=== PATIENT | female | born 1935 | race Caucasian/White ===

== ENCOUNTER 2016-11-12 15:26 | Emergency (ER) | payer MEDICARE, OTHER ==
[2016-11-12 15:42] VITALS: TEMP 98.6
[2016-11-12] MEDS ORDERED: MAG HYDROX/AL HYDROX/SIMETH 30 ML, HYOSCYAMINE ELIXIR 10 ML, CIMETIDINE HCL 300 MG, LID... PO STA ×4 (16:25)
[2016-11-12] MEDS ORDERED: HYDROcodone/APAP 5-325MG 1 EACH TAB PO STA (16:25)
--- NOTE | 2016-11-12 16:45 | ED ---
General Adult HPI - General Chief complaint: Nausea/Vomiting/Diarrhea Stated complaint: Feeding Tube Possibly Dislodged Time Seen by Provider: 11/12/16 15:47 Source: patient, family, RN notes reviewed Mode of arrival: wheelchair Limitations: no limitations - History of Present Illness Initial comments: This patient is an 81-year-old woman who presents with concerns about the gastric tube that she has. The patient has history of distal esophagus/GE junction adenocarcinoma, which had a treatment with what sounds like local recurrence. The patient was not felt to be a surgical candidate. She did have some esophageal stricture, and therefore had the gastric tube placed about 6 weeks ago and then a number weeks ago she had esophageal stenting, as she continues to eat and has had food retained in the esophagus. The patient's complaint today is that she felt that the G-tube is projecting further out of her abdomen than it has in the past, and she has also noted which she is calling some black drainage around the outside of it. The patient is denying pain at the insertion site or in the abdomen. She has continued to use the tube for tube feeding, though she does occasionally eat by mouth as well. Patient denies chest pain. Denies cough or dyspnea. No abdominal pain. No dark or tarry stools. -: days(s) - Related Data Home Medications Medication Instructions Recorded Confirmed Pravastatin Sodium [Pravachol] 20 mg PO HS 09/11/15 11/12/16 Feeding Solution 1 dose PEG/G-TUBE DIRECTED 09/21/16 11/12/16 Omeprazole 20 mg PO DAILY 11/12/16 11/12/16 Previous Rx's Medication Instructions Recorded Hydrocodone/Acetaminophen [[place] 1 each PO Q6HR PRN #20 tab 11/12/16 5-325] Allergies Allergy/AdvReac Type Severity Reaction Status Date / Time penicillin V potassium Allergy Rash/Hives Verified 11/12/16 15:51 [From Renetta Savage] Penicillins Allergy Rash/Hives Verified 11/12/16 15:51 Review of Systems ROS Statement: Those systems with pertinent positive or pertinent negative responses have been documented in the HPI. ROS Other: All systems not noted in ROS Statement are negative. Constitutional: Denies: fever Respiratory: Denies: cough, dyspnea Cardiovascular: Denies: chest pain, palpitations, edema Gastrointestinal: Reports: as per HPI. Denies: abdominal pain, vomiting, diarrhea, constipation, melena, hematochezia Musculoskeletal: Denies: back pain Skin: Denies: rash Neurological: Denies: headache, weakness, numbness Past Medical History Past Medical History: Atrial Fibrillation, Cancer, COPD, Hyperlipidemia, Hypertension Additional Past Medical History / Comment(s): Adenocarcinoma of the distal esophagus/GE junction, Stage III esophageal cancer with chemo/radiation completed about 7 weeks ago, L foot drop, chronic atrial fibrillation, previous GI bleeding detailed discussed above, hypertension, breast cancer left-sided status post mastectomy, chronic back pain and degenerative arthritis, COPD, hyperlipidemia, recent admission 06/06/16 for dizziness History of Any Multi-Drug Resistant Organisms: None Reported Past Surgical History: Adenoidectomy, Appendectomy, Breast Surgery, Cholecystectomy, Tonsillectomy Additional Past Surgical History / Comment(s): 05/10/16 EGD, aortic aneurysm repair, left breast mastectomy, L breast bx, cataract removals bilaterally, colonoscopy with benign polypectomy.aaa repair Past Anesthesia/Blood Transfusion Reactions: No Reported Reaction Additional Past Anesthesia/Blood Transfusion Reaction / Comment(s): Pt states she has never had blood transfusion reaction. Past Psychological History: Anxiety Additional Psychological History / Comment(s): Pt resides alone. She is indepenent. She uses no assistive device. She drives. Smoking Status: Former smoker Past Alcohol Use History: None Reported Additional Past Alcohol Use History / Comment(s): Pt states she started smoking at the age of 18yrs. Pt states she quit smoking in [id number] Past Drug Use History: None Reported - Past Family History Brother(s) Family Medical History: Coronary Artery Disease (CAD) Father Additional Family Medical History / Comment(s): Father of an aortic aneurysm at age 80yrs. Mother Family Medical History: Congestive Heart Failure (CHF) Additional Family Medical History / Comment(s): Mother at age 81 or 82 of heart problem. She also had mental health issures. General Exam Limitations: no limitations General appearance: alert, cachectic Respiratory exam: Present: normal lung sounds bilaterally. Absent: respiratory distress, wheezes, rales, rhonchi, stridor Cardiovascular Exam: Present: regular rate, normal rhythm, normal heart sounds. Absent: systolic murmur, diastolic murmur, rubs, gallop GI/Abdominal exam: Present: soft, other (There is a gastric tube in the left upper quadrant of the abdomen which does appear to be well-healed. There is a small amount of some drainage onto the gauze which is dressing the site. Where the drainage has dried it is darkened and the patient states that is what she is talking about when she indicates the black drainage.). Absent: distended, tenderness, guarding, rebound Extremities exam: Absent: pedal edema, calf tenderness Back exam: Present: normal inspection. Absent: CVA tenderness (R), CVA tenderness (L) Neurological exam: Present: alert Skin exam: Present: warm, dry, intact, normal color. Absent: rash Course Vital Signs 11/12/16 11/12/16 15:40 18:07 Temperature 98.6 F 98.6 F Pulse Rate 76 78 Respiratory 20 18 Rate Blood Pressure 114/65 142/77 O2 Sat by Pulse 97 99 Oximetry Medical Decision Making - Medical Decision Making Patient is an 81-year-old woman with concern of a possible dislodgment of her gastric tube. By my exam it appears that the tube is still within the tract and there does appear to be gastric contents when the suction applied. We did perform a contrast study through the gastric tube. The initial film was somewhat indeterminate, and a subsequent film did show that the contrast was within the gastrointestinal tract. Patient stable for follow-up. Disposition Clinical Impression: No problem, feared complaint unfounded Disposition: HOME SELF-CARE Condition: Good Instructions: How to Use and Care for Your PEG Tube (ED) Prescriptions: Hydrocodone/Acetaminophen [[place] 5-325] 1 each PO Q6HR PRN #20 tab PRN Reason: Pain Referrals: Leonel Ta MD [Primary Care Provider] - 1-2 days
--- NOTE | 2016-11-12 16:51 | XR ---
EXAMINATION TYPE: XR KUB DATE OF EXAM ORDERED: 11/12/2016 4:45 PM HISTORY: Feeding tube placement. COMPARISON: Previous study dated 06/06/2016. FINDINGS: An esophageal stent has been placed. The gastric feeding tube projects over the gastric ai r bubble. Injection of contrast fails to identify distinct rugae. There is been a previous cholecystectomy. There are phleboliths and other vascular calcifications within the pelvis. IMPRESSION: I CANNOT WITH CERTAINTY CONFIRM THE PLACEMENT OF THE PATIENT'S FEEDING TUBE WITHIN THE STOMACH.
--- NOTE | 2016-11-12 17:33 | XR ---
EXAMINATION TYPE: XR KUB DATE OF EXAM: 11/12/2016 5:12 PM COMPARISON: 11/12/2016 today HISTORY: Follow-up PEG tube TECHNIQUE: Single view FINDINGS: There is a small amount of oral contrast in the gastric fundus. There is a PEG tube over th e mid abdomen. There is also a distal esophageal stent. There is no sign of pneumoperitoneum. Lung ba ses are clear. IMPRESSION: Gastrostomy tube over the left upper quadrant appears to not be changed in position trisha red to exam earlier at 4:37 PM. No sign of contrast extravasation. Nonacute abdomen. Position of the catheter tip is not well defined because of lack of contrast around the catheter tip.
[2016-11-12 18:09] VITALS: BP 142/77; PULSE 78; RESP 18
== END 2016-11-12 18:21 | disposition home or self-care (01) ==
LOC: EC 15:26
DX: Z71.1 Person with feared health complaint in whom no diagnosis is made (principal); C15.9 Malignant neoplasm of esophagus, unspecified; E78.5 Hyperlipidemia, unspecified; Z92.3 Personal history of irradiation; Z79.899 Other long term (current) drug therapy; Z87.891 Personal history of nicotine dependence; Z88.0 Allergy status to penicillin
CPT/HCPCS: 74000; 99284

== ENCOUNTER 2016-11-21 13:34 | Inpatient (IN) | payer MEDICARE, OTHER ==
--- NOTE | 2016-11-21 15:37 | ED ---
General Adult HPI - General Chief complaint: Recheck/Abnormal Lab/Rx Stated complaint: Blood In Feeding Tube Time Seen by Provider: 11/21/16 15:00 Source: patient Mode of arrival: ambulatory Limitations: no limitations - History of Present Illness Initial comments: Patient is an 81-year-old female with history of distal esophageal cancer stage III diagnosed one year ago status post radiation presenting with blood coming from PEG tube. Patient had PEG tube placed 2- 3 months ago at the direction of Dr. Villalba at [facility]. Patient had distal esophageal stent placed [address] Nathan so that she could maintain oral intake. Patient uses PEG tube every 4 hours for nutrition. Patient denies anticoagulation or aspirin use. Patient denies fever, chills, chest pain, shortness breath, nausea , vomiting, diarrhea. - Related Data Home Medications Medication Instructions Recorded Confirmed Pravastatin Sodium [Pravachol] 20 mg PO HS 09/11/15 11/21/16 Dronabinol 5 mg PO TID 11/21/16 11/21/16 HYDROcodone/APAP 10-325MG [[place] 1 tab PO Q4H PRN 11/21/16 11/21/16 10-325] Omeprazole 40 mg PO DAILY 11/21/16 11/21/16 Sucralfate [Carafate] 1 gm PO ACHS 11/21/16 11/21/16 Allergies Allergy/AdvReac Type Severity Reaction Status Date / Time penicillin V potassium Allergy Rash/Hives Verified 11/21/16 14:57 [From Renetta Savage] Penicillins Allergy Rash/Hives Verified 11/21/16 14:57 Review of Systems ROS Statement: Those systems with pertinent positive or pertinent negative responses have been documented in the HPI. Constitutional: No fever and no chills. HENT: No congestion, no rhinorrhea and no sore throat. Eyes: No discharge and no redness. Respiratory: No cough and no shortness of breath. Cardiovascular: No chest pain and no palpitations. Gastrointestinal: No nausea, no vomiting, no abdominal pain and no diarrhea. Genitourinary: No dysuria and no hematuria. Musculoskeletal: No back pain and no arthralgias. Skin: No pallor and no rash. Neurological: No dizziness and No headaches. ROS Other: All systems not noted in ROS Statement are negative. Past Medical History Past Medical History: Atrial Fibrillation, Cancer, COPD, Hyperlipidemia, Hypertension Additional Past Medical History / Comment(s): Adenocarcinoma of the distal esophagus/GE junction, Stage III esophageal cancer with chemo/radiation completed about 7 weeks ago, L foot drop, chronic atrial fibrillation, previous GI bleeding detailed discussed above, hypertension, breast cancer left-sided status post mastectomy, chronic back pain and degenerative arthritis, COPD, hyperlipidemia, recent admission 06/06/16 for dizziness History of Any Multi-Drug Resistant Organisms: None Reported Past Surgical History: Adenoidectomy, Appendectomy, Breast Surgery, Cholecystectomy, Tonsillectomy Additional Past Surgical History / Comment(s): 05/10/16 EGD, aortic aneurysm repair, left breast mastectomy, L breast bx, cataract removals bilaterally, colonoscopy with benign polypectomy.aaa repair Past Anesthesia/Blood Transfusion Reactions: No Reported Reaction Additional Past Anesthesia/Blood Transfusion Reaction / Comment(s): Pt states she has never had blood transfusion reaction. Past Psychological History: Anxiety Additional Psychological History / Comment(s): Pt resides alone. She is indepenent. She uses no assistive device. She drives. Smoking Status: Former smoker Past Alcohol Use History: None Reported Additional Past Alcohol Use History / Comment(s): Pt states she started smoking at the age of 18yrs. Pt states she quit smoking in [id number] Past Drug Use History: None Reported - Past Family History Brother(s) Family Medical History: Coronary Artery Disease (CAD) Father Additional Family Medical History / Comment(s): Father of an aortic aneurysm at age 80yrs. Mother Family Medical History: Congestive Heart Failure (CHF) Additional Family Medical History / Comment(s): Mother at age 81 or 82 of heart problem. She also had mental health issures. General Exam - General Exam Comments Initial Comments: Constitutional: Chronically ill appearing 81-year-old female. Head: Normocephalic and atraumatic. Eyes: Conjunctivae and EOM are normal. Right eye exhibits no discharge. Left eye exhibits no discharge. No scleral icterus. Neck: Normal range of motion. Neck supple. Cardiovascular: Normal rate and regular rhythm. No murmur heard. Pulmonary/Chest: Effort normal and breath sounds normal. No respiratory distress. No wheezes. Abdominal: Patient has a left upper quadrant PEG tube in place with red discoloration to PEG tube fluid. No abdominal tenderness in all 4 quadrants. Musculoskeletal: Normal range of motion. No edema or tenderness. Neurological: Patient alert and oriented to person, place, and time. Skin: Skin is warm and dry. Not diaphoretic. Nursing notes and vitals reviewed. Limitations: no limitations Course Vital Signs 11/21/16 11/21/16 11/21/16 13:56 17:08 17:15 Temperature 97.5 F L Pulse Rate 76 67 68 Respiratory 18 28 H 22 Rate Blood Pressure 104/59 143/61 O2 Sat by Pulse 100 100 Oximetry 11/21/16 11/21/16 11/21/16 17:41 18:00 18:15 Temperature Pulse Rate 74 75 68 Respiratory 18 18 20 Rate Blood Pressure 142/73 133/68 128/63 O2 Sat by Pulse 100 100 100 Oximetry 11/21/16 11/21/16 11/21/16 18:33 18:44 18:45 Temperature 97.7 F 97.7 F 97.7 F Pulse Rate 70 72 70 Respiratory 18 20 20 Rate Blood Pressure 116/60 116/57 116/60 O2 Sat by Pulse 100 100 Oximetry 11/21/16 18:47 Temperature 97.8 F Pulse Rate 69 Respiratory 20 Rate Blood Pressure 119/59 O2 Sat by Pulse Oximetry - Reevaluation(s) Reevaluation #1: 3:35pm Discussed care with Dr. Krishnamurthy who agrees with management of patient. As long as patient is stable, he agrees that patient can follow up with HF WB on Tuesday. Recommends getting a CXR. 11/21/16 17:00 Called to patient's room as she is now vomiting bright red blood. Blood pressure approximately 100/60 with episodes of bradycardia. Patient ordered for 2 large-bore IVs, 2 L normal saline, 2 units PRBC, Protonix 80 mg with 40 mg twice a day, octreotide 50 g IV push now and 50 mg an hour drip. Repeat hemoglobin ordered. Discussed goals of care with patient and family. Patient would not like to be put on life support for which she does not want intubation or CPR. Patient is okay with a central line or pressors should she need it. Family is adamant about not wanting to go to [facility] at this time. They understand the risk and benefits of each hospital and accepting the limitations at [facility]. They want to stay at [facility]. 5:40pm Discussed H&P and pertinent diagnostic tests with Dr. Carter who knows patient. Patient with complex history. He recommends transfer to [facility] but given the family's request understands that he wants to stay here. Agrees with treatment plan at this time. 5:50pm Discussed H&P and pertinent diagnostic tests with Dr. Lacy who agrees with plan and accepts admission of patient. Dr. Lacy recommends consulting Dr. Kennedy. 5:59pm Discussed H&P and pertinent diagnostic tests with Dr. Kennedy. She recommends transfer to remain given limitations but again agreeable to family's request to stay here. She recommends GI consult which has already been consulted. 6:05pm Discussed H&P and pertinent diagnostic tests with content designer Dr. Elizabeth who agrees with patient in ICU given limitations of hospital for which family understand and consultants in agreement. - 6:55pm Discussed H&P and pertinent diagnostic tests patient's covering oncologist Dr. Roberson covering for Dr. Guevara. He is also in agreement. 7:33pm Notified [facility] Dr. Krishnamurthy with Dr. Nathan of change in patient's status that she will not be able to follow-up outpatient and that she will be managed in ICU. Medical Decision Making - Medical Decision Making Patient is an 81-year-old female with history of distal esophageal states cancer status post radiation with distal esophageal stent placed 21 days ago and PEG tube placed in the last 2-3 months. Patient presenting with blood from the PEG tube. Hemoglobin 8.6 for which is within normal her range. BUN 23. Chest x-ray without pneumonia mediastinum. During stay she developed hematemesis of approximately 300 mL's of bright red blood. Patient's initial blood pressure was 100/64 which responded and came about 145/74. Patient was started on 2 L normal saline, 2 units PRBC ordered. Patient was started on octreotide and Protonix. Consult placed to GI Dr. Carter, Dr. Lacy medicine, Dr. Kennedy general surgery, Dr. Elizabeth content designer, oncologist Dr. Roberson covering for Dr. Guevara and cardiothoracic team at [facility] Dr. Krishnamurthy. Patient and family are adamant about staying at [facility] for which consultants recommended transfer to [facility]. Consultants understand patient's and family's request to stay at [facility] and agreeable to aggressive medical management for hematemesis. The family, patient and consultants are agreeable and understand limitations to treatment at [facility] as compared to [facility]. When discussing goals of care with patient and family patient does not want CPR or intubation. She would be ok with central line and vasopressors. Patient was resting comfortably in bed - much improved without any further hematemesis. Blood pressure stable. Course of stay improved. Denies pain. Discussed physical exam and diagnostic tests with patient and family. Questions answered and patient is agreeable to staying in the hospital. - Lab Data Result diagrams: 11/21/16 16:03 11/21/16 16:03 Lab Results 11/21/16 11/21/16 11/21/16 Range/Units 16:03 16:03 16:03 WBC 4.4 (3.8-10.6) k/uL RBC 3.04 L (3.80-5.40) m/uL Hgb 8.6 L (11.4-16.0) gm/dL Hct 27.5 L (34.0-46.0) % MCV 90.5 (80.0-100.0) fL MCH 28.1 (25.0-35.0) pg MCHC 31.0 (31.0-37.0) g/dL RDW 15.5 (11.5-15.5) % Plt Count 293 (150-450) k/uL Neutrophils % 73 % Lymphocytes % 17 % Monocytes % 7 % Eosinophils % 0 % Basophils % 0 % Neutrophils # 3.2 (1.3-7.7) k/uL Lymphocytes # 0.8 L (1.0-4.8) k/uL Monocytes # 0.3 (0-1.0) k/uL Eosinophils # 0.0 (0-0.7) k/uL Basophils # 0.0 (0-0.2) k/uL Hypochromasia Slight PT 12.0 (9.0-12.0) sec INR 1.2 (<1.1) APTT 27.1 (22.0-30.0) sec Sodium (137-145) mmol/L Potassium (3.5-5.1) mmol/L Chloride (98-107) mmol/L Carbon Dioxide (22-30) mmol/L Anion Gap mmol/L BUN (7-17) mg/dL Creatinine (0.52-1.04) mg/dL Est GFR (MDRD) Af Amer (>60 ml/min/1.73 sqM) Est GFR (MDRD) Non-Af (>60 ml/min/1.73 sqM) Glucose (74-99) mg/dL Calcium (8.4-10.2) mg/dL Blood Type AB Positive Blood Type Recheck No Antibody Screen NEGATIVE Crossmatch See Detail Spec Expiration Date 11/24/2016 - 230211/21/16 Range/Units 16:03 WBC (3.8-10.6) k/uL RBC (3.80-5.40) m/uL Hgb (11.4-16.0) gm/dL Hct (34.0-46.0) % MCV (80.0-100.0) fL MCH (25.0-35.0) pg MCHC (31.0-37.0) g/dL RDW (11.5-15.5) % Plt Count (150-450) k/uL Neutrophils % % Lymphocytes % % Monocytes % % Eosinophils % % Basophils % % Neutrophils # (1.3-7.7) k/uL Lymphocytes # (1.0-4.8) k/uL Monocytes # (0-1.0) k/uL Eosinophils # (0-0.7) k/uL Basophils # (0-0.2) k/uL Hypochromasia PT (9.0-12.0) sec INR (<1.1) APTT (22.0-30.0) sec Sodium 138 (137-145) mmol/L Potassium 4.3 (3.5-5.1) mmol/L Chloride 100 (98-107) mmol/L Carbon Dioxide 29 (22-30) mmol/L Anion Gap 9 mmol/L BUN 23 H (7-17) mg/dL Creatinine 0.50 L (0.52-1.04) mg/dL Est GFR (MDRD) Af Amer >60 (>60 ml/min/1.73 sqM) Est GFR (MDRD) Non-Af >60 (>60 ml/min/1.73 sqM) Glucose 96 (74-99) mg/dL Calcium 8.6 (8.4-10.2) mg/dL Blood Type Blood Type Recheck Antibody Screen Crossmatch Spec Expiration Date Critical Care Time Critical Care Time: Yes Total Critical Care Time: 45 Critical Care Time: Critical care time was exclusive of separately billable procedures and treating another patient and teaching time. Critical care was necessary to treat or prevent imminent or life-threatening deterioration of the following conditions: Shock, acute GI bleed, acute blood loss anemia. Critical care was time spent person by me the following activities: Discussions with consultants, evaluation of patient's response to treatment, obtaining history, ordering and reviewing laboratory studies and x-rays, monitoring of vitals, reevaluation of patient's condition, ordering and performing treatment interventions, examination of patient, discussion with providers and development of treatment plan. Disposition Clinical Impression: Acute gastrointestinal bleeding, Esophageal cancer Disposition: ADMITTED IP TO THIS [facility] Condition: Critical
[2016-11-21 16:20] LABS: Basophils % (A) 0 %; CH 28.3; CHCM 31.4; Eosinophils % (A) 0 %; HCT 27.5 % (34.0-46.0); HDW 2.75; HGB 8.6 gm/dL (11.4-16.0); Hypochromasia Slight; Luc % (Auto) 2; Lymphocytes # (A) 0.8 k/uL (1.0-4.8); Lymphocytes % (A) 17 %; MCH 28.1 pg (25.0-35.0); MCV 90.5 fL (80.0-100.0); Mean Platelet Volume 7.5; Monocytes # (A) 0.3 k/uL (0-1.0); Monocytes % (A) 7 %; Neutrophils # (A) 3.2 k/uL (1.3-7.7); Neutrophils % (A) 73 %; RBC 3.04 m/uL (3.80-5.40); RDW 15.5 % (11.5-15.5); WBC 4.4 k/uL (3.8-10.6); WBC (Perox) 4.57
[2016-11-21 16:29] LABS: Anion Gap 9 mmol/L; Blood Urea Nitrogen 23 mg/dL (7-17); Calcium 8.6 mg/dL (8.4-10.2); Carbon Dioxide 29 mmol/L (22-30); Chloride 100 mmol/L (98-107); Glucose 96 mg/dL (74-99); Non-African American GFR(MDRD) >60 (>60 ml/min/1.73 sqM); Potassium 4.3 mmol/L (3.5-5.1); Sodium 138 mmol/L (137-145)
[2016-11-21 16:31] LABS: INR 1.2 (<1.1); Partial Thromboplastin Time 27.1 sec (22.0-30.0)
[2016-11-21] MEDS ORDERED: PANTOPRAZOLE 40 MG/10 ML VIAL IVP ONE (17:07)
[2016-11-21] MEDS ORDERED: OCTREOTIDE 100 MCG/ML INJ IVP STA (17:08)
[2016-11-21] MEDS ORDERED: OCTREOTIDE 200 MCG in SODIUM CHLORIDE 0.9% 100 ML IV ONE (17:08)
[2016-11-21] MEDS ORDERED: SODIUM CHLORIDE 0.9% 1,000 ML IV STA (17:12)
[2016-11-21] MEDS ORDERED: METOCLOPRAMIDE 5 MG/ML 2 ML VIAL IVP STA (17:12)
[2016-11-21] MEDS ORDERED: fentaNYL (PF) 50 MCG/ML 2 ML AMP IV STA (17:29)
--- NOTE | 2016-11-21 17:36 | XR ---
EXAMINATION TYPE: XR chest 1V portable DATE OF EXAM: 11/21/2016 5:16 PM COMPARISON: Prior chest x-ray June 12, 2016. HISTORY: Status post esophageal stenting. TECHNIQUE: Single AP portable frontal upright view of the chest is obtained. FINDINGS: Slightly elevated left hemidiaphragm is seen on current study. There is no focal air space opacity, pleural effusion, or pneumothorax seen. The cardiac silhouette size is upper limits of nor mal atherosclerotic and ectatic thoracic aorta. Loop recorder overlies the left upper chest. Metallic stent graft in distal esophagus extends below diaphragm into proximal stomach new from prior. The o sseous structures are demineralized. Degenerative changes in both shoulders the glenohumeral joint is more prominent than prior. IMPRESSION: No acute pulmonary process.
[2016-11-21] MEDS ORDERED: NALOXONE 0.4 MG/ML 1 ML VIAL IV PRN (18:15)
[2016-11-21] MEDS ORDERED: SODIUM CHLORIDE 0.9% 1,000 ML IV SCH (18:15)
[2016-11-21 19:23] LABS: Glucose,Whole Blood 143 mg/dL (75-99)
--- NOTE | 2016-11-21 20:02 | P.PN ---
Progress Note - Text Notified of consultation. In discussion with ER provider and nursing, patient was deemed not a surgical candidate for resection of her esophageal tumor. New bleed from PEG tube likely from erosion of her esophageal stent from her esophageal cancer. I have discussed with ED physician of continuity of care at [facility] for management of her stent and bleeding. I have recommended consultation to GI as well. Alternatives of palliative/hospice care also reviewed with ED and nursing team.
[2016-11-21] MEDS ORDERED: LORazepam 2 MG/ML SYRINGE IV PRN (20:32)
[2016-11-21] MEDS ORDERED: ONDANSETRON 4 MG/2 ML VIAL IVP PRN (20:32)
[2016-11-21] MEDS ORDERED: MORPHINE SULFATE 2 MG/ML SYRINGE IVP PRN (20:32)
[2016-11-21] MEDS ORDERED: PANTOPRAZOLE 40 MG/10 ML VIAL IVP SCH (21:00)
[2016-11-21 23:44] VITALS: TEMP 98
[2016-11-22] MEDS ORDERED: ATROPINE SULFATE 0.1 MG/ML 10ML SYRINGE ONE (00:35)
[2016-11-22 01:28] VITALS: BMI 20.4
[2016-11-22 01:30] VITALS: BP 97/64; PULSE 94; RESP 31
--- NOTE | 2016-11-22 21:09 | HP ---
DATE OF ADMISSION: 11/21/2016 PRESENTING COMPLAINT: Blood from the PEG tube. HISTORY OF PRESENTING COMPLAINT: This is an 81-year-old patient I saw yesterday evening in the ICU. I am doing the dictation this morning on 11/22/16. Patient has a rather extensive medical history. Patient has a diagnosis of esophageal cancer, locally advanced, and the patient did get chemoradiation. Subsequently, recently about 3 weeks ago patient did get a stent by ( ) at [facility] and also had a PEG tube placed. Patient's other chronic stable medical conditions include AV block, chronic left foot drop, osteoarthritis, COPD, hyperlipidemia and chronic aortic stenosis. Patient presented this time with blood coming out of the PEG tube with possibly vomiting some blood, too. When the ER physician called me, I did not ask him if the family wanted the patient to be transferred to [facility]. The ER physician did inform me that ( ) wanted the patient to be admitted here, did not want to take the patient down to [facility], where her treatment was done. When I saw the patient in the ICU that night, patient was rather weak, tired, rundown. Consultation in the ER was done with Dr. Carter, Dr. Kennedy from General Surgery and Dr. Elizabeth from Critical Care. Review of systems could not be done, as the patient was rather tired and did not want to communicate much. PAST MEDICAL HISTORY: 1. Paroxysmal atrial fibrillation. 2. Stage III esophageal cancer, status post chemoradiation and stent placement. 3. Chronic left foot drop. 4. Primary osteoarthritis of the lumbar spine. 5. COPD. 6. Hyperlipidemia. 7. Chronic aortic stenosis. 8. Left breast cancer with mastectomy. PAST SURGICAL HISTORY: 1. Adenoidectomy. 2. Appendectomy. 3. Cholecystectomy. 4. PEG tube placement. 5. Aortic aneurysm repair. 6. Cataract removal bilaterally. 7. Abdominal aortic aneurysm repair. SOCIAL HISTORY: Patient smoked from the age of 18 years up about 2003. Living by herself. FAMILY HISTORY: Congestive heart failure. Father had aortic aneurysm at the age of 80. HOME MEDICATIONS: List reviewed from the ER. ALLERGIES: PENICILLIN. On examination, temperature 98.1, pulse 86, respiration 24, blood pressure 134/69, pulse ox 97% on room air. GENERAL APPEARANCE: Average build. Lying in bed. Tired-appearing, lethargic. EYES: Pupils equal. Conjunctivae pale. HEENT: Oral cavity normal. NECK: JVD unable to assess. Mass not palpable. RESPIRATORY: Effort normal. LUNGS: Diminished breath sounds. CARDIOVASCULAR: First and second sounds normal. No edema. ABDOMEN: PEG tube in place. Minimal tenderness. Liver and spleen not palpable. LYMPHATIC: No lymph node palpable in neck or axillae. PSYCHIATRY: Patient is rather lethargic. NEUROLOGICAL: Pupils equal. No facial asymmetry. Patient was previously moving all 4 limbs. INVESTIGATIONS: White count 4.4, hemoglobin 8.6. Potassium 4.3. BUN 23, creatinine 0.50. ASSESSMENT: 1. Acute gastrointestinal bleed in a patient with known esophageal cancer with stent who has received chemoradiation; also has a PEG tube in place. Patient presented with bleeding through the PEG tube and also possibly vomited some blood. Currently hemodynamically stable, being watched closely. 2. Chronic left foot drop. 3. Primary osteoarthritis of the lumbar spine. 4. Chronic obstructive pulmonary disease in an ex-smoker. 5. Hyperlipidemia. 6. Chronic aortic stenosis. PLAN: Continue was made with Marcia from General Surgery, Dr. Elizabeth from Pulmonary, Dr. Carter from GI. I have informed the nurse that we would be willing to transfer the patient to [facility] in the morning. Overall prognosis guarded.
--- NOTE | 2016-11-23 12:57 | DS ---
DATE OF ADMISSION: 11/21/2016 DATE OF DISCHARGE: 11/22/2016 DATE PATIENT : 11/22/2016 CAUSE OF : Esophageal cancer. OTHER MEDICAL DIAGNOSES: 1. Acute upper gastrointestinal bleed in a, probably from esophageal cancer. 2. Chronic left foot drop. 3. Primary osteoarthritis of lumbar spine. 4. Chronic obstructive pulmonary disease in an ex-smoker. 5. Hyperlipidemia. 6. Chronic aortic stenosis. CONSULTATION: Dr. Carter from gastroenterology, Dr. Kennedy from general surgery. Dr. Elizabeth from critical care. HOSPITAL COURSE: This patient presented with esophageal cancer, prior history of chemoradiation, esophageal stent placement and a PEG tube placed, presented with bleeding. Patient started bleeding profusely, vomiting blood, and the patient succumbed to underlying condition. Copy to Dr. Ta.
--- NOTE | 2016-12-01 08:28 | DS ---
ADDENDUM/CLARIFICATION DATE OF ADMISSION: 11/21/2016 DATE OF DISCHARGE: 11/22/2016 DATE PATIENT : 11/22/2016 CAUSE OF : Esophageal cancer. MODIFICATION OF FINAL DIAGNOSIS: Acute severe blood loss anemia requiring 2 units of blood causing possibly hypotensive shock, likely source of bleed is esophageal cancer, present on admission.
== END 2016-11-22 05:00 | disposition expired | DRG 375 ==
LOC: EC 13:34 → 6ICU 18:15
PROVIDERS: ADMIT Hospitalist; ATTEND Hospitalist
PROC: 30233N1 Transfusion of Nonautologous Red Blood Cells into Peripheral Vein, Percutaneous Approach (ICD-10-PCS; principal; 2016-11-21)
DX: C15.5 Malignant neoplasm of lower third of esophagus (principal); K92.0 Hematemesis; R57.9 Shock, unspecified; D62 Acute posthemorrhagic anemia; J44.9 Chronic obstructive pulmonary disease, unspecified; I48.0 Paroxysmal atrial fibrillation; Z93.1 Gastrostomy status; Z51.5 Encounter for palliative care; Z66 Do not resuscitate; I35.0 Nonrheumatic aortic (valve) stenosis; M21.372 Foot drop, left foot; M47.816 Spondylosis without myelopathy or radiculopathy, lumbar region; E78.5 Hyperlipidemia, unspecified; I10 Essential (primary) hypertension; I44.30 Unspecified atrioventricular block; F41.9 Anxiety disorder, unspecified; Z87.891 Personal history of nicotine dependence; Z92.3 Personal history of irradiation; Z98.41 Cataract extraction status, right eye; Z98.42 Cataract extraction status, left eye; Z92.21 Personal history of antineoplastic chemotherapy; Z85.3 Personal history of malignant neoplasm of breast; Z90.12 Acquired absence of left breast and nipple; Z86.79 Personal history of other diseases of the circulatory system; Z79.899 Other long term (current) drug therapy
CPT/HCPCS: 36415; 36430; 71010; 80048; 85025; 85610; 85730; 86850; 86900; 86901; 86920; 96361; 96365; 96375; 99291